=== PATIENT | male | born 1955 | race Caucasian/White ===

== ENCOUNTER 2017-11-26 00:07 | Emergency (ER) | payer BC ==
[~2017-11-26 00:07] MED LIST: AMIT25; CYMBALTA; HYDACE10 PO; HYDACE5 PO; MORP15ER; MORP15ER PO; RXPROM25S PR; SERT25; SERT50; VALS80
[2017-11-26] MEDS ORDERED: ATOR10 PO (00:59)
[2017-11-26] MEDS ORDERED: QUETIAPINE FUM300 M1 PO (00:59)
[2017-11-26] MEDS ORDERED: TELM80 PO (00:59)
[2017-11-26] MEDS ORDERED: L-METHYLFOLATE15 M1 PO (01:00)
[2017-11-26] MEDS ORDERED: DULO60 PO (01:01)
[2017-11-26] MEDS ORDERED: AMLO5 PO (01:01)
[2017-11-26] MEDS ORDERED: Lamictal200 MG PO (01:01)
[2017-11-26] MEDS ORDERED: Diovan320 MG (01:04)
[2017-11-26] MEDS ORDERED: Metformin HCl500 MG PO (01:04)
[2017-11-26] MEDS ORDERED: GLIM2 PO (01:04)
[2017-11-26] MEDS ORDERED: LEVSOD50 PO (01:04)
[2017-11-26] MEDS ORDERED: QUETIAPINE FUMA50 MG PO (01:06)
== END 2017-11-26 00:22 | disposition left against medical advice (07) ==
LOC: ER 00:07
DX: Z53.21 Procedure and treatment not carried out due to patient leaving prior to being seen by health care provider (principal)

== ENCOUNTER 2017-11-26 00:43 | Emergency (ER) | payer BC ==
[~2017-11-26] VITALS: Ht 162.6 cm; Wt 86.2 kg
[2017-11-26] MEDS ORDERED: TELM80 PO (00:59)
[2017-11-26] MEDS ORDERED: ATOR10 PO (00:59)
[2017-11-26] MEDS ORDERED: QUETIAPINE FUM300 M1 PO (00:59)
[2017-11-26] MEDS ORDERED: L-METHYLFOLATE15 M1 PO (01:00)
[2017-11-26] MEDS ORDERED: DULO60 PO (01:01)
[2017-11-26] MEDS ORDERED: Lamictal200 MG PO (01:01)
[2017-11-26] MEDS ORDERED: AMLO5 PO (01:01)
[2017-11-26] MEDS ORDERED: Metformin HCl500 MG PO (01:04)
[2017-11-26] MEDS ORDERED: GLIM2 PO (01:04)
[2017-11-26] MEDS ORDERED: Diovan320 MG (01:04)
[2017-11-26] MEDS ORDERED: LEVSOD50 PO (01:04)
[2017-11-26] MEDS ORDERED: QUETIAPINE FUMA50 MG PO (01:06)
== END 2017-11-26 04:15 | disposition home or self-care (01) ==
LOC: ER 00:43
DX: S01.112A Laceration without foreign body of left eyelid and periocular area, initial encounter (principal); S01.412A Laceration without foreign body of left cheek and temporomandibular area, initial encounter; I11.0 Hypertensive heart disease with heart failure; I50.9 Heart failure, unspecified; F31.9 Bipolar disorder, unspecified; F17.210 Nicotine dependence, cigarettes, uncomplicated; Z88.2 Allergy status to sulfonamides; Z88.5 Allergy status to narcotic agent; Z79.899 Other long term (current) drug therapy; Z79.84 Long term (current) use of oral hypoglycemic drugs; W01.0XXA Fall on same level from slipping, tripping and stumbling without subsequent striking against object, initial encounter
CPT/HCPCS: 12015; 99282

== ENCOUNTER 2019-01-30 14:00 | Inpatient (IN) | payer BC ==
[~2019-01-30] VITALS: Ht 162.6 cm; Wt 92.1 kg
[~2019-01-30 14:00] MED LIST changes: +AMLO5 PO; +ATOR10 PO; +DULO60 PO; +Diovan320 MG; +GLIM2 PO; +L-METHYLFOLATE15 M1 PO; +LAMO100 PO; +LEVSOD50 PO; +METF500 PO; +QUETIAPINE FUM300 M1 PO; +TELM80 PO
[2019-01-30] MEDS ORDERED: Lithium Carbon450 MG PO (14:23)
[2019-01-30] MEDS ORDERED: QUETIAPINE FUM200 M1 PO (14:27)
[2019-01-30] MEDS ORDERED: ASPI81CH PO (14:33)
[2019-01-30] MEDS ORDERED: VITAMIN B125000 MCG SL (14:34)
[2019-01-30] MEDS ORDERED: ONE DAILY MEN'1 EAC1 PO (14:34)
[2019-01-30] MEDS ORDERED: Vitamin D2000 UNIT PO (14:35)
[2019-01-30 14:55] LABS: Hematocrit 43.8 % (37.0-53.0); Hemoglobin 14.4 g/dL (13.5-17.5); Mean Corpuscular HGB 29.8 pg (26.0-34.0); Mean Corpuscular HGB Conc 32.9 g/dL (31.5-36.5); Mean Corpuscular Volume 91 fL (80-100); Mean Platelet Volume 11.1 fL (9.1-12.4); Platelet Count 109 K/mm3 (150-400); RDW Coefficient Variation 14.5 % (11.7-14.2); RDW Standard Deviation 48.7 fL (35.1-46.3); Red Blood Cell Count 4.83 M/mm3 (4.30-5.90)
[2019-01-30 15:11] LABS: Anion Gap 9 mmol/L (6-16); Blood Urea Nitrogen 11 mg/dL (8-24); Bun/Creatinine Ratio 13.9 (12.0-20.0); CHOL/HDL RATIO 4.5; CO2, Blood 22 mmol/L (21-32); CPK Creatine Kinase 126 U/L (39-308); Chloride, Blood 105 mmol/L (98-108); Cholesterol 153 mg/dL (50-200); Creatine Kinase MB 1.7 ng/mL (0.0-3.6); Creatine Kinase MB Index 1.3 (0.0-4.0); Creatinine, Blood 0.79 mg/dL (0.60-1.20); Glomerular Filtration Rate >60 (60-); Glucose, Blood 270 mg/dL (70-99); HDL Cholesterol 34 mg/dL (>39); LDL/HDL RATIO 1.8; Low Density Lipoprotein Chol 61 mg/dL (0-110); Magnesium, Blood 1.8 mg/dL (1.6-2.4); Potassium, Blood 3.7 mmol/L (3.5-5.5); Sodium, Blood 136 mmol/L (136-145); Triglycerides 292 mg/dL (30-160); Troponin I <0.015 ng/mL (0.000-0.040); Very Low Density Lipoprot Chol 58 mg/dL (6-32)
[2019-01-30 16:05] LABS: International Normalized Ratio 1.06; Prothrombin Time Results 11.2 Sec (9.7-11.5)
[2019-01-30 18:11] LABS: Creatine Kinase MB 3.3 ng/mL (0.0-3.6); Creatine Kinase MB Index 2.7 (0.0-4.0); Troponin I 0.354 ng/mL (0.000-0.040)
--- NOTE | 2019-01-30 19:46 | NUR ---
SUMMARY Assumed care of pt upon arrival to unit at 1645. 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 Arrived with nitroglycerin gtt at 20 mcg/min and aggrastat at 0.149 mcg/kg/min. Right transradial artery access, dressed with TR band. Site free of bruising or drainage. Color, sensation, capillary refill, distal pulses equal BUE. This RN placed call to Dr Becker to clarify order for aggrastat and to request order for zofran, as pt is feeling nauseated. New orders given. Dr Becker in to see pt at 1800. Nitroglycerin to be titrated for chest pain. Okay for drip to be turned off tonight, if permitted by pt condition. Pt states 3/10 chest discomfort at this time. Bedside report given to Eunice GARCIA and Laurence GARCIA.
--- NOTE | 2019-01-30 21:44 | NUR ---
ASSUMED CARE NOTE: RECEVIED REPORT FROM GARCIA GARCIA. UPON ENTERING ROOM PT WAS ALERT AND ORIENTED X4. PT REMAINS ON RA WITH SPO2 ABOVE 90%. DURING INITAL ASSESSMENT PT HAS BEEN DENYING ANY CHEST PAIN/DISCOMFORT. HOWEVER HE HAS BEEN C/O NAUSEA AND HAS BEEN MEDICATED PER EMAR. SPOKE TO DR. VALADEZ REGARDING BRILINTA AND HEPARIN MEDS ORDER FOR 01/30/19 @ 2100, DR ADVISED TO HOLD BOTH MEDICATION UNTIL THE AM OF 01/31/19. PT'S TR BAND REMAINS AT 10CC, SITE (RIGHT WRIST) HAS A 3-5 INCH HEMATOMA, MARKED THE AREA AND WILL CONTINUE TO REASSESS. GOOD CAP REFILL. SENSATION AND STRONG PULSE NOTED ON DISTALLY TO RIGHT WIRST. NITROGLYCERIN DECREASED TO 10MCG/MIN PER ORDER. AGGRASTAT RUNNING AT 16.5ML/HR. WILL CONTINUE TO MONITOR PT T/O SHIFT.
--- NOTE | 2019-01-31 00:03 | NUR ---
UPDATE NOTE: NO ACTIVE BLEED SEEN AT TR BAND SITE . 3-5INCH HEMATOMA PROXIMAL TO TR BAND (RIGHT WRIST) NOTED. SENSATION/GOOD CAP REFILL NOTED DISTAL TO TR BAND. PT HAS HAD TO BE REMINDED TO NOT USE RIGHT ARM. PT CONTINUES TO DENY CHEST PAIN.
[2019-01-31 02:26] LABS: BASOPHILS ABSOLUTE AUTO 0.02 K/mm3 (0.00-0.23); BASOPHILS PERCENT AUTO 0 % (0-2); EOSINOPHILS ABSOLUTE AUTO 0.08 K/mm3 (0.00-0.68); EOSINOPHILS PERCENT AUTO 1 % (0-6); Hematocrit 39.4 % (37.0-53.0); Hemoglobin 13.4 g/dL (13.5-17.5); IMMATURE GRAN ABSOLUTE AUTO 0.04 K/mm3 (0.00-0.10); IMMATURE GRAN PERCENT AUTO 0 % (0-1); LYMPHOCYTES ABSOLUTE AUTO 1.73 K/mm3 (0.84-5.20); LYMPHOCYTES PERCENT AUTO 16 % (21-46); MONOCYTES ABSOLUTE AUTO 0.59 K/mm3 (0.16-1.47); MONOCYTES PERCENT AUTO 5 % (4-13); Mean Corpuscular HGB 30.5 pg (26.0-34.0); Mean Corpuscular Volume 90 fL (80-100); Mean Platelet Volume 10.4 fL (9.1-12.4); NEUTROPHILS ABSOLUTE AUTO 8.46 K/mm3 (1.96-9.15); NEUTROPHILS PERCENT AUTO 78 % (41-73); Platelet Count 135 K/mm3 (150-400); RDW Coefficient Variation 14.4 % (11.7-14.2); RDW Standard Deviation 47.1 fL (35.1-46.3); White Blood Cell Count 10.92 K/mm3 (4.00-11.30)
[2019-01-31 02:47] LABS: Alanine Aminotransfer (ALT/SGP 47 U/L (12-78); Albumin, Blood 3.8 g/dL (3.4-5.0); Albumin/Globulin Ratio 0.9 (0.8-1.8); Alk Phos 88 U/L (50-136); Anion Gap 7 mmol/L (6-16); Aspartate Aminotrans (AST/SGOT 82 U/L (12-37); Bilirubin, Total 0.7 mg/dL (0.1-1.0); Blood Urea Nitrogen 9 mg/dL (8-24); Bun/Creatinine Ratio 12.5 (12.0-20.0); CO2, Blood 25 mmol/L (21-32); CPK Creatine Kinase 771 U/L (39-308); Calcium, Blood 8.5 mg/dL (8.5-10.1); Chloride, Blood 106 mmol/L (98-108); Creatine Kinase MB 67.5 ng/mL (0.0-3.6); Creatine Kinase MB Index 8.8 (0.0-4.0); Creatinine, Blood 0.72 mg/dL (0.60-1.20); Globulin, Blood 4.2 g/dL (2.2-4.0); Glomerular Filtration Rate >60 (60-); Glucose, Blood 135 mg/dL (70-99); Potassium, Blood 3.7 mmol/L (3.5-5.5); Sodium, Blood 138 mmol/L (136-145)
--- NOTE | 2019-01-31 06:17 | NUR ---
SHIFT SUMMARY: PT CONTINUES TO BE ALERT AND ORIENTED. PT REMAINS IN SINUS RHYTHYM WITH HR BETWEEN 80-90 BMP. VSS. PT CONTINUES TO DENY ANY CHEST PAIN/SOB. HOWEVER HE WAS C/O STOMACH ACID. PT STATES " EVERYTIME I LAY DOWN I FEEL THE ACID COME UP AND I HAVE TO SIT RIGHT BACK UP". PT WAS THEN GIVEN A GI COCKTAIL ORDERED. PT HAS BEEN USING THE URINAL T/O SHIFT AND VOIDING CLEAR YELLOW URINE. TR BAND STILL IN PLACE WITH 3CC-4CC INFLATED, NO ACTIVE BLEEDING NOTED. GOOD CAP REFILL, SENSATION DISTAL TO TR SITE NOTED. HEMATOMA NOTED PROXIMAL TO SITE. AGGRASTAT IS COMPLETE. NS @ 75ML/HR. BED AT LOWEST LEVEL, CALL LIGHT WITHIN REACH. WILL CONTINUE TO MONITOR PT UNTIL REPORT IS GIVEN TO ONCOMING NURSE.
--- NOTE | 2019-01-31 08:00 | NUR ---
BEGINNING OF SHIFT Assumed care at 0700. Bedside report received from Eunice RN and Laurence RN. Pt on room air. SR per monitor. Aggrastat off. Nitro drip off. Pt denies chest pain. Good appetite. Tolerating breakfast well. TR band had 3 mL of air per report, but is deflated at this time. TR band remains in place.
--- NOTE | 2019-01-31 08:30 | NUR ---
TR BAND REMOVED Site dressed with clear tegaderm. No leakage or hematoma noted to site. Small bruise noted proximal to site. Not extending beyond lines of demarcation placed during previous shift. Color, sensation, distal pulses, capillary refill equal BUE.
[2019-01-31 10:32] LABS: Creatine Kinase MB 112.6 ng/mL (0.0-3.6)
[2019-01-31 10:43] LABS: Creatine Kinase MB Index 7.8 (0.0-4.0); Troponin I 32.1 ng/mL (0.000-0.040)
--- NOTE | 2019-01-31 11:01 | NUR ---
Echocardiogram completed.
--- NOTE | 2019-01-31 11:30 | NUR ---
CALL PLACED TO DR MARIN This RN notified provider of elevated troponin. Pt has not had chest pain this shift. He states he is feeling much better than he did yesterday. Condition discussed with provider. Will recheck troponin 8 hours after previous draw. Pt okay for PCU status.
--- NOTE | 2019-01-31 19:20 | NUR ---
SUMMARY No acute changes since initial assessment. Pt has remained free of chest pain. SR with rate in 70s. SBP 150s. Pt PCU status. Independent in room. Tolerating activity well. Pt verblalizes desire to go home tomorrow. TR site covered with tegaderm. No drainage noted to site. Color, sensation, pulses, capillary refill equal BUE. Bedside report given to Leyda GARCIA.
--- NOTE | 2019-02-01 06:43 | NUR ---
SHIFT SUMMARY LYING ON RIGHT SIDE WITH EYES CLOSED. ABLE TO SWALLOW 0600 MED WITHOUT ISSUE WITH WATER. REPOSITIONS SELF IN BED. RIGHT WRIST ACCESS POINT DRESSING IS C/D/I. SHADOW OF BRUISING NOTED MARKED. DENEIS N/T AT SITE. DENIES FURTHER NEED OR WANTS AT THIS TIME. SAFETY MEASURES IN PLACE. WILL GIVE HAND OFF TO ONCOMING SHIFT USING SBAR,
--- NOTE | 2019-02-01 07:15 | NUR ---
BEGINNING OF SHIFT Assumed care at 0700. Bedside report received from Leyda GARCIA. Pt laying in bed, awake, at time of report. States desire to go home today. Right radial artery access [employer] at time of report. Pt states he wants to take a shower today. Awaiting cardiology to see pt.
--- NOTE | 2019-02-01 08:00 | NUR ---
DR ARBOLEDA IN TO SEE PT Discussed appearance of TR site. Discussed trend of troponins. Discussed absence of chest pain. Plan for pt to discharge this AM. Pt states he uses [facility].
[2019-02-01] MEDS ORDERED: Aspir 8181 MG PO (09:27)
[2019-02-01] MEDS ORDERED: Lopressor 25 mg25 MG PO (09:28)
[2019-02-01] MEDS ORDERED: TICA90TA PO (09:29)
--- NOTE | 2019-02-01 11:00 | NUR ---
DISCHARGE Pt discharged from unit at 1006 accompanied with . Discharge education given to both parties. Verbalized understanding. Medications called to [facility]. Pt escorted to entrance via wheelchair accompanied by this RN.
== END 2019-02-01 10:06 | disposition home or self-care (01) | DRG 247 ==
LOC: ER 14:00 → ICUW 14:16
PROVIDERS: Emergency Medicine; ADMIT Internal Medicine Interventional Cardiology
PROC: 027035Z Dilation of Coronary Artery, One Artery with Two Drug-eluting Intraluminal Devices, Percutaneous Approach (ICD-10-PCS; principal; 2019-01-30)
PROC: 02703ZZ Dilation of Coronary Artery, One Artery, Percutaneous Approach (ICD-10-PCS; 2019-01-30)
PROC: 02C03ZZ Extirpation of Matter from Coronary Artery, One Artery, Percutaneous Approach (ICD-10-PCS; 2019-01-30)
PROC: B240ZZ3 Ultrasonography of Single Coronary Artery, Intravascular (ICD-10-PCS; 2019-01-30)
DX: I21.3 ST elevation (STEMI) myocardial infarction of unspecified site (principal); I10 Essential (primary) hypertension; E78.5 Hyperlipidemia, unspecified; F17.210 Nicotine dependence, cigarettes, uncomplicated; Z98.1 Arthrodesis status; Z79.82 Long term (current) use of aspirin; E11.9 Type 2 diabetes mellitus without complications; Z79.84 Long term (current) use of oral hypoglycemic drugs
CPT/HCPCS: 36415; 71045; 76937; 80048; 80053; 80061; 82550; 82553; 82947; 83735; 84484; 85025; 85027; 85347; 85610; 85730; 86850; 86900; 86901; 92978; 93005; 93010; 93306; 93454; 99152; 99153; 99285-25; C1725; C1753; C1757; C1769; C1874; C1887; C1894; C9606; J1644; J1815; J2250; J2405; J3010; J3246; J7030; Q9967

== ENCOUNTER → 2019-08-26 | Outpatient (CLI) | payer BC ==
[~2019-08-26] MED LIST changes: +ASPI81CH PO; +Aspir 8181 MG PO; +Lithium Carbon450 MG PO; +Lopressor 25 mg25 MG PO; +ONE DAILY MEN'1 EAC1 PO; +QUETIAPINE FUM200 M1 PO; +TICA90TA PO; +VITAMIN B125000 MCG SL; +Vitamin D2000 UNIT PO
[2019-08-26 17:39] LABS: Free Thyroxine 0.78 ng/dL (0.70-1.60)
[2019-08-26 17:43] LABS: Thyroid Stimulating Hormone 3.25 uIU/mL (0.360-4.800)
== END | disposition home or self-care (01) ==
LOC: LAB SHORT 15:52 → LAB 15:52
PROVIDERS: Hospitalist
DX: E11.65 Type 2 diabetes mellitus with hyperglycemia (principal); E03.9 Hypothyroidism, unspecified
CPT/HCPCS: 82043; 84439; 84443

== ENCOUNTER → 2021-03-14 | Outpatient (CLI) | payer BC ==
[2021-03-14 19:06] LABS: Free Thyroxine 0.65 ng/dL (0.70-1.60); Thyroid Stimulating Hormone 2.98 uIU/mL (0.360-4.800)
== END | disposition home or self-care (01) ==
LOC: LAB 17:20 → LAB SHORT 17:20
PROVIDERS: Hospitalist
DX: E03.9 Hypothyroidism, unspecified (principal)
CPT/HCPCS: 84439; 84443

== ENCOUNTER 2021-05-25 07:52 | Day surgery (SDC) | payer BC ==
[~2021-05-25] VITALS: Ht 162.6 cm; Wt 92.7 kg
[2021-05-25] MEDS ORDERED: QUET200 (08:28)
--- NOTE | 2021-05-25 08:44 | NUR ---
05/25/21 0844 CROW CROWLEY FIRST ATTEMPT MISSED BY MA IN THE RIGHT HAND. SECOND ATTEMPT SUCCESSFUL BY MA IN THE RIGHT HAND.
--- NOTE | 2021-05-25 11:40 | NUR ---
05/25/21 1140 Levi Medrano PT VERY DROWSY AFTER COLONOSCOPY HOWEVER VS WNL. PT NOW AWAKE AND ALERT. PER DR. PEOPLES PT WILL NEED TO OBSERVED FOR ANOTHER 30 MINS IN STEP DOWN. PT ON CONTINOUS VS MONITORING. PT SMILING AND LAUGHING. REPORT GIVEN TO STEP DOWN NURSE DORA. WILL CONTINUE TO MONITOR.
== END 2021-05-25 12:08 | disposition home or self-care (01) ==
LOC: ORSCSDS 07:52
PROVIDERS: Student in an Organized Health Care Education/Training Program
PROC: 0DBL8ZX Excision of Transverse Colon, Via Natural or Artificial Opening Endoscopic, Diagnostic (ICD-10-PCS; principal; 2021-05-25 09:15)
PROC: 0DBM8ZX Excision of Descending Colon, Via Natural or Artificial Opening Endoscopic, Diagnostic (ICD-10-PCS; principal; 2021-05-25 09:15)
PROC: 0DBH8ZX Excision of Cecum, Via Natural or Artificial Opening Endoscopic, Diagnostic (ICD-10-PCS; principal; 2021-05-25 09:15)
PROC: 0DBK8ZX Excision of Ascending Colon, Via Natural or Artificial Opening Endoscopic, Diagnostic (ICD-10-PCS; principal; 2021-05-25 09:15)
PROC: 0DBN8ZX Excision of Sigmoid Colon, Via Natural or Artificial Opening Endoscopic, Diagnostic (ICD-10-PCS; principal; 2021-05-25 09:15)
DX: Z12.11 Encounter for screening for malignant neoplasm of colon (principal); D12.3 Benign neoplasm of transverse colon; D12.2 Benign neoplasm of ascending colon; D12.0 Benign neoplasm of cecum; D12.4 Benign neoplasm of descending colon; K63.5 Polyp of colon; K57.30 Diverticulosis of large intestine without perforation or abscess without bleeding; K64.8 Other hemorrhoids; I10 Essential (primary) hypertension; G47.33 Obstructive sleep apnea (adult) (pediatric); F31.9 Bipolar disorder, unspecified; E66.9 Obesity, unspecified; Z68.35 Body mass index [BMI] 35.0-35.9, adult; Z79.899 Other long term (current) drug therapy
CPT/HCPCS: 82947; 88305; J2060; J2250; J2704; J7120

== ENCOUNTER 2021-10-03 06:26 | Day surgery (SDC) | payer BC ==
[~2021-10-03] VITALS: Ht 162.6 cm; Wt 95.5 kg
[~2021-10-03 06:26] MED LIST changes: +QUET200
== END 2021-10-03 09:46 | disposition home or self-care (01) ==
LOC: ORSCSDS 06:26
PROVIDERS: Student in an Organized Health Care Education/Training Program
PROC: 0DBL8ZX Excision of Transverse Colon, Via Natural or Artificial Opening Endoscopic, Diagnostic (ICD-10-PCS; principal; 2021-10-03 08:00)
PROC: 0DBK8ZX Excision of Ascending Colon, Via Natural or Artificial Opening Endoscopic, Diagnostic (ICD-10-PCS; principal; 2021-10-03 08:00)
PROC: 0DBN8ZX Excision of Sigmoid Colon, Via Natural or Artificial Opening Endoscopic, Diagnostic (ICD-10-PCS; principal; 2021-10-03 08:00)
PROC: 0DBM8ZX Excision of Descending Colon, Via Natural or Artificial Opening Endoscopic, Diagnostic (ICD-10-PCS; principal; 2021-10-03 08:00)
PROC: 0DBH8ZX Excision of Cecum, Via Natural or Artificial Opening Endoscopic, Diagnostic (ICD-10-PCS; principal; 2021-10-03 08:00)
DX: Z86.010 Personal history of colon polyps (principal); D12.3 Benign neoplasm of transverse colon; D12.0 Benign neoplasm of cecum; D12.2 Benign neoplasm of ascending colon; D12.4 Benign neoplasm of descending colon; K63.5 Polyp of colon; K57.30 Diverticulosis of large intestine without perforation or abscess without bleeding; I10 Essential (primary) hypertension; E78.5 Hyperlipidemia, unspecified; G47.33 Obstructive sleep apnea (adult) (pediatric); Z87.891 Personal history of nicotine dependence; I25.2 Old myocardial infarction; F31.9 Bipolar disorder, unspecified; E66.9 Obesity, unspecified; Z68.36 Body mass index [BMI] 36.0-36.9, adult; Z79.899 Other long term (current) drug therapy; Z79.82 Long term (current) use of aspirin
CPT/HCPCS: 82947; 88305; J1100; J2250; J2405; J2704; J3010; J7120

== ENCOUNTER → 2021-11-28 | Outpatient (CLI) | payer BC | END | disposition home or self-care (01) | LOC: LAB SHORT 16:45 → LAB 16:45 | DX: E11.42 Type 2 diabetes mellitus with diabetic polyneuropathy (principal) | CPT/HCPCS: 82043 ==

== ENCOUNTER 2022-10-27 08:12 | Observation (INO) | payer BC ==
[~2022-10-27] VITALS: Ht 162.6 cm; Wt 90.2 kg
[~2022-10-27 08:12] MED LIST changes: +EUTHYROX88 MCG PO; -LEVSOD50 PO; -QUET200; +QUET200 PO
[2022-10-27 08:50] LABS: BASOPHILS ABSOLUTE AUTO 0.01 K/mm3 (0.00-0.23); BASOPHILS PERCENT AUTO 0 % (0-2); EOSINOPHILS ABSOLUTE AUTO 0.09 K/mm3 (0.00-0.68); EOSINOPHILS PERCENT AUTO 2 % (0-6); Hematocrit 31.9 % (37.0-53.0); Hemoglobin 10.3 g/dL (13.5-17.5); IMMATURE GRAN ABSOLUTE AUTO 0.02 K/mm3 (0.00-0.10); IMMATURE GRAN PERCENT AUTO 0 % (0-1); LYMPHOCYTES ABSOLUTE AUTO 1.85 K/mm3 (0.84-5.20); LYMPHOCYTES PERCENT AUTO 39 % (21-46); MONOCYTES ABSOLUTE AUTO 0.23 K/mm3 (0.16-1.47); MONOCYTES PERCENT AUTO 5 % (4-13); Mean Corpuscular HGB 28.6 pg (26.0-34.0); Mean Corpuscular HGB Conc 32.3 g/dL (31.5-36.5); Mean Corpuscular Volume 89 fL (80-100); NEUTROPHILS PERCENT AUTO 53 % (41-73); Platelet Count 118 K/mm3 (150-400); RDW Coefficient Variation 16.8 % (11.7-14.2); RDW Standard Deviation 54.1 fL (35.1-46.3)
[2022-10-27 09:13] LABS: Albumin, Blood 3.5 g/dL (3.4-5.0); Albumin/Globulin Ratio 0.9 (0.8-1.8); Bilirubin, Total 0.5 mg/dL (0.1-1.0); Bun/Creatinine Ratio 15.2 (12.0-20.0); Calcium, Blood 8.4 mg/dL (8.5-10.1); Creatinine, Blood 0.79 mg/dL (0.60-1.20); Globulin, Blood 3.7 g/dL (2.2-4.0); Potassium, Blood 3.7 mmol/L (3.5-5.5); Total Protein, Blood 7.2 g/dL (6.4-8.2)
[2022-10-27] MEDS ORDERED: FARXIGA10 MG PO (11:47)
[2022-10-27 12:15] VITALS: BP 118/77
--- NOTE | 2022-10-27 12:45 | NUR ---
PT ADMITTED TO ROOM 312 FROM ED VIA GURNEY. SETTLED IN TO BED AND ORIENTED TO ROOM. INDEPENDENT WITH MOBILITY. DENIES CHEST PAIN ON ARRIVAL. IN A SHORT TIME AFTER HE ARRIVED. MD NOTIFIED OF PTS ARRIVAL.
[2022-10-27] MEDS ORDERED: QUET300 PO (13:46)
[2022-10-27] MEDS ORDERED: VITAMIN B125000 MC1 PO (13:47)
[2022-10-27] MEDS ORDERED: VITAMIN D5000 UNIT PO (13:47)
[2022-10-27 15:00] LABS: CHOL/HDL RATIO 2.9; Cholesterol 103 mg/dL (50-200); HDL Cholesterol 35 mg/dL (>39); LDL/HDL RATIO 1.3; Low Density Lipoprotein Chol 45 mg/dL (0-110); Triglycerides 114 mg/dL (30-160); Very Low Density Lipoprot Chol 22 mg/dL (6-32)
[2022-10-27 15:18] VITALS: BP 126/77
--- NOTE | 2022-10-27 18:42 | NUR ---
SHIFT SUMMARY PT WITH NO CHEST PAIN THROUGH THE SHIFT. NOTIFIED OF MEDS NOT AVAILABLE FROM HOSPITAL [facility]. SHE IS TO BRING THEM IN TOMORROW. PT AND REQUESTING HOME MEDS TO BE GIVEN CLOSE TO HOME MED TIME POSSIBLE. AGREEABLE TO 1000 AND 2200.
[2022-10-27 19:23] VITALS: BP 148/81
[2022-10-28 03:47] VITALS: BP 117/64
[2022-10-28 05:15] LABS: BASOPHILS ABSOLUTE AUTO 0.03 K/mm3 (0.00-0.23); BASOPHILS PERCENT AUTO 1 % (0-2); EOSINOPHILS ABSOLUTE AUTO 0.13 K/mm3 (0.00-0.68); EOSINOPHILS PERCENT AUTO 2 % (0-6); Hematocrit 30.9 % (37.0-53.0); IMMATURE GRAN ABSOLUTE AUTO 0.03 K/mm3 (0.00-0.10); IMMATURE GRAN PERCENT AUTO 1 % (0-1); LYMPHOCYTES ABSOLUTE AUTO 1.79 K/mm3 (0.84-5.20); LYMPHOCYTES PERCENT AUTO 32 % (21-46); MONOCYTES ABSOLUTE AUTO 0.35 K/mm3 (0.16-1.47); MONOCYTES PERCENT AUTO 6 % (4-13); Mean Corpuscular HGB 28.8 pg (26.0-34.0); Mean Corpuscular HGB Conc 32.4 g/dL (31.5-36.5); Mean Corpuscular Volume 89 fL (80-100); Mean Platelet Volume 11.3 fL (9.1-12.4); NEUTROPHILS ABSOLUTE AUTO 3.27 K/mm3 (1.96-9.15); NEUTROPHILS PERCENT AUTO 58 % (41-73); Platelet Count 125 K/mm3 (150-400); RDW Standard Deviation 54.9 fL (35.1-46.3); Red Blood Cell Count 3.47 M/mm3 (4.30-5.90)
[2022-10-28 05:55] LABS: Albumin, Blood 3.4 g/dL (3.4-5.0); Albumin/Globulin Ratio 0.9 (0.8-1.8); Bilirubin, Total 0.5 mg/dL (0.1-1.0); Bun/Creatinine Ratio 20.3 (12.0-20.0); Calcium, Blood 8.2 mg/dL (8.5-10.1); Creatinine, Blood 0.79 mg/dL (0.60-1.20); Globulin, Blood 3.8 g/dL (2.2-4.0); Potassium, Blood 3.6 mmol/L (3.5-5.5); Total Protein, Blood 7.2 g/dL (6.4-8.2)
--- NOTE | 2022-10-28 06:10 | NUR ---
INDEPENDENT IN ROOM, BABAK SQUIRES NPO FOR PENDING PROCEDURE TODAY. TELE IN PLACE, NO CALLS FROM TELE MATE FIRST. FIRE SAFETY REVIEWED.
[2022-10-28 07:45] VITALS: BP 130/76
--- NOTE | 2022-10-28 17:30 | NUR ---
DISCHARGE INSTRUCTIONS COMPLETED AND DISCUSSED WITH PT AND EXPRESSING UNDERSTANDING. CALLED MD PER PT REQUEST TO ASK IF NITRO TABS WOULD BE APPROPRIATE WITH APPROVAL. FAXED TO [facility] PER PT REQUEST. TO [facility]IA W/C WITH AND BELONGINGS.
== END 2022-10-28 17:20 | disposition home or self-care (01) ==
LOC: ER 08:12 → MEDS 10:14
PROVIDERS: Emergency Medicine; Student in an Organized Health Care Education/Training Program; ADMIT Internal Medicine
DX: I25.118 Atherosclerotic heart disease of native coronary artery with other forms of angina pectoris (principal); F31.9 Bipolar disorder, unspecified; I10 Essential (primary) hypertension; E11.9 Type 2 diabetes mellitus without complications; E03.9 Hypothyroidism, unspecified; E78.5 Hyperlipidemia, unspecified; I25.2 Old myocardial infarction; Z95.5 Presence of coronary angioplasty implant and graft; F17.210 Nicotine dependence, cigarettes, uncomplicated; Z88.5 Allergy status to narcotic agent; Z88.2 Allergy status to sulfonamides; Z79.890 Hormone replacement therapy; Z79.899 Other long term (current) drug therapy
CPT/HCPCS: 36415; 71046; 78452; 80053; 80061; 82947; 83036; 83880; 84484; 85025; 93005; 93010; 93017; 96374; 99285-25; A9270; A9500; G0378; J0706; J2405; J2785

== ENCOUNTER 2022-11-15 07:08 | Observation (INO) | payer BC ==
[~2022-11-15] VITALS: Ht 162.6 cm; Wt 90.0 kg
[~2022-11-15 07:08] MED LIST changes: +ERGO50000 PO; +EUTHYROX50 MC1 PO; +FARXIGA10 MG PO; +FERROUS SULFAT325 M3 PO; +Isosorbide Mono30 MG PO; +QUET300 PO; +VITAMIN B125000 MC1 PO; +VITAMIN D5000 UNIT PO
--- NOTE | 2022-11-15 11:07 | NUR ---
PT REPORTS NAUSEA AND IS PROVIDED A EMESIS BAG. VERBAL ORDER FROM DR. COPELAND FOR 4MG ZOFRAN IV NOW. PT MEDICATED ORDERED. PT AWAITING PCU ROOM
[2022-11-15 11:41] VITALS: BP 158/89
[2022-11-15 12:24] VITALS: BP 158/89
[2022-11-15 12:30] VITALS: BP 143/78
[2022-11-15 13:00] VITALS: BP 148/81
[2022-11-15 13:30] VITALS: BP 142/89
--- NOTE | 2022-11-15 14:23 | NUR ---
TR BAND FULLY RECOVERED. CLEANED WITH CHOLRIHEXIDINE AND A TEGADERM WAS PLACED. ARM BOARD LEFT IN PLACE AND A SLING WAS APPLIED TO REMIND THE PT NOT TO PUT PRESSURE ON HIS RIGHT WRIST.
--- NOTE | 2022-11-15 14:24 | NUR ---
AFTERNOON SUMMARY PT TRANSFERED TO [facility] AR[facility] 1220 THIS AFTERNOON. HE HAD A ANGIO ON HIS RIGHT WRIST AND IS AWAITING TRANSPORT FOR [facility] ROOM 275. I GAVE REPORT TO EDUARDO GARCIA AT [facility]. PT IS PLEASENT AND COOPERATIRob RIOSUT NEED REMINDERS ABOUT NOT PUTTING PRESSURE ON HIS RIGHT WRIST. ARM BOARD AND SLING IN PLACE FOR A REMINDER. HIS MARIO WORKS HERE AT THE HOSPITAL AND CAME TO SEE THE PT. SHE WAS UPDATED ON CARE. ON TELE PT IS SR 70'S-80'S, BP STABLE, SP02 >90% ON ROOM AIR. PT DENIES ANY ANGINA, CHEST PRESSURE, SOB, OR PAIN. PT DOES HAVE SOME NAUSEA AND WAS MEDICATED WITH 4MG PO ZOFRAN. HE IS RESTING AT THIS TIME. FIRE IGNITION RISK ASSESSED, PT EDUCATED.
--- NOTE | 2022-11-15 16:30 | NUR ---
PT PICKED UP BY TRANSPORT AT ABOUT 1610, HIS WALLET IS WITH HIS , AND BELONGINGS SENT WITH THE PT.
== END 2022-11-15 16:27 | disposition short-term general hospital (02) ==
LOC: MHTC 07:08 → PCU 07:10 → MHTC 07:10 → PCU 09:51
PROVIDERS: ADMIT Family Medicine
DX: I25.110 Atherosclerotic heart disease of native coronary artery with unstable angina pectoris (principal); T82.855A Stenosis of coronary artery stent, initial encounter; Y71.8 Miscellaneous cardiovascular devices associated with adverse incidents, not elsewhere classified; I25.2 Old myocardial infarction; E78.49 Other hyperlipidemia; I10 Essential (primary) hypertension; E11.9 Type 2 diabetes mellitus without complications; E03.9 Hypothyroidism, unspecified; Z88.5 Allergy status to narcotic agent; Z88.2 Allergy status to sulfonamides; Z79.84 Long term (current) use of oral hypoglycemic drugs; Z79.899 Other long term (current) drug therapy
CPT/HCPCS: 76937; 82947; 85347; 93454; 93571; 99152; 99153; A9270; C1769; C1887; C1894; J1644; J1815; J2250; J2405; J3010; J7030; J7050; Q9967

== ENCOUNTER → 2022-11-22 | Outpatient (CLI) | payer BC ==
[2022-11-22 19:33] LABS: BASOPHILS ABSOLUTE AUTO 0.02 K/mm3 (0.00-0.23); BASOPHILS PERCENT AUTO 0 % (0-2); EOSINOPHILS ABSOLUTE AUTO 0.18 K/mm3 (0.00-0.68); EOSINOPHILS PERCENT AUTO 4 % (0-6); Hematocrit 32.2 % (37.0-53.0); Hemoglobin 10.3 g/dL (13.5-17.5); IMMATURE GRAN ABSOLUTE AUTO 0.02 K/mm3 (0.00-0.10); IMMATURE GRAN PERCENT AUTO 0 % (0-1); LYMPHOCYTES ABSOLUTE AUTO 1.37 K/mm3 (0.84-5.20); LYMPHOCYTES PERCENT AUTO 28 % (21-46); MONOCYTES ABSOLUTE AUTO 0.46 K/mm3 (0.16-1.47); MONOCYTES PERCENT AUTO 9 % (4-13); Mean Corpuscular HGB 28.8 pg (26.0-34.0); Mean Corpuscular Volume 90 fL (80-100); Mean Platelet Volume 12.1 fL (9.1-12.4); NEUTROPHILS ABSOLUTE AUTO 2.89 K/mm3 (1.96-9.15); NEUTROPHILS PERCENT AUTO 59 % (41-73); Platelet Count 134 K/mm3 (150-400); RDW Coefficient Variation 14.9 % (11.7-14.2); RDW Standard Deviation 49.1 fL (35.1-46.3); Red Blood Cell Count 3.58 M/mm3 (4.30-5.90); White Blood Cell Count 4.94 K/mm3 (4.00-11.30)
[2022-11-22 20:16] LABS: Bun/Creatinine Ratio 12.2 (12.0-20.0); Calcium, Blood 8.2 mg/dL (8.5-10.1); Creatinine, Blood 0.82 mg/dL (0.60-1.20); Potassium, Blood 3.9 mmol/L (3.5-5.5)
== END | disposition home or self-care (01) ==
LOC: LAB SHORT 17:38 → LAB 17:38
PROVIDERS: Hospitalist
DX: I25.110 Atherosclerotic heart disease of native coronary artery with unstable angina pectoris (principal); K92.1 Melena
CPT/HCPCS: 80048; 85025

== ENCOUNTER 2022-12-18 08:12 | Emergency (ER) | payer BC ==
[~2022-12-18] VITALS: Ht 162.6 cm; Wt 86.2 kg
[2022-12-18 09:26] LABS: BASOPHILS ABSOLUTE AUTO 0.08 K/mm3 (0.00-0.23); BASOPHILS PERCENT AUTO 1 % (0-2); EOSINOPHILS ABSOLUTE AUTO 0.83 K/mm3 (0.00-0.68); EOSINOPHILS PERCENT AUTO 9 % (0-6); Hemoglobin 6.8 g/dL (13.5-17.5); IMMATURE GRAN ABSOLUTE AUTO 0.05 K/mm3 (0.00-0.10); IMMATURE GRAN PERCENT AUTO 1 % (0-1); LYMPHOCYTES ABSOLUTE AUTO 2.11 K/mm3 (0.84-5.20); LYMPHOCYTES PERCENT AUTO 22 % (21-46); MONOCYTES ABSOLUTE AUTO 0.53 K/mm3 (0.16-1.47); MONOCYTES PERCENT AUTO 5 % (4-13); Mean Corpuscular HGB Conc 28.3 g/dL (31.5-36.5); Mean Corpuscular Volume 88 fL (80-100); Mean Platelet Volume 10.7 fL (9.1-12.4); NEUTROPHILS ABSOLUTE AUTO 6.19 K/mm3 (1.96-9.15); NEUTROPHILS PERCENT AUTO 63 % (41-73); Platelet Count 216 K/mm3 (150-400); RDW Coefficient Variation 16.2 % (11.7-14.2); RDW Standard Deviation 52.1 fL (35.1-46.3); Red Blood Cell Count 2.72 M/mm3 (4.30-5.90); White Blood Cell Count 9.79 K/mm3 (4.00-11.30)
[2022-12-18 09:30] LABS: International Normalized Ratio 1.17; Prothrombin Time Results 12.2 Sec (9.7-11.5)
[2022-12-18 09:36] LABS: Albumin, Blood 3.1 g/dL (3.4-5.0); Albumin/Globulin Ratio 0.8 (0.8-1.8); Bilirubin, Total 0.4 mg/dL (0.1-1.0); Calcium, Blood 7.9 mg/dL (8.5-10.1); Creatinine, Blood 0.8 mg/dL (0.60-1.20); Globulin, Blood 4.1 g/dL (2.2-4.0); Potassium, Blood 3.5 mmol/L (3.5-5.5); Total Protein, Blood 7.2 g/dL (6.4-8.2)
[2022-12-18] MEDS ORDERED: FARXIGA10 MG PO (10:08)
[2022-12-18] MEDS ORDERED: LAMICTAL200 MG PO (10:08)
[2022-12-18 15:49] VITALS: BP 128/93
[2022-12-24] MEDS ORDERED: PANT40 PO (21:16)
== END 2022-12-18 15:46 | disposition home or self-care (01) ==
LOC: ER 08:12
PROVIDERS: Student in an Organized Health Care Education/Training Program
DX: K92.0 Hematemesis (principal); D64.9 Anemia, unspecified; I10 Essential (primary) hypertension; E11.9 Type 2 diabetes mellitus without complications; I25.2 Old myocardial infarction; F31.9 Bipolar disorder, unspecified; F17.210 Nicotine dependence, cigarettes, uncomplicated; Z95.1 Presence of aortocoronary bypass graft; Z88.2 Allergy status to sulfonamides; Z88.5 Allergy status to narcotic agent; Z79.899 Other long term (current) drug therapy; Z79.84 Long term (current) use of oral hypoglycemic drugs
CPT/HCPCS: 36430; 71046; 80053; 82272; 85025; 85610; 86850; 86900; 86901; 86923; 93005; 93010; 96365; 96375; 99285-25; C9113; J0696; J7030; P9016

== ENCOUNTER 2022-12-25 23:51 | Observation (INO) | payer BC ==
[~2022-12-25] VITALS: Ht 175.3 cm; Wt 81.7 kg
[~2022-12-25 23:51] MED LIST changes: +LAMICTAL200 MG PO; +PANT40 PO
[2022-12-26] VITALS (32 sets, daily range): BP systolic 96–163; BP diastolic 66–118
[2022-12-26 01:05] LABS: BASOPHILS ABSOLUTE AUTO 0.06 K/mm3 (0.00-0.23); BASOPHILS PERCENT AUTO 0 % (0-2); EOSINOPHILS ABSOLUTE AUTO 0.41 K/mm3 (0.00-0.68); EOSINOPHILS PERCENT AUTO 3 % (0-6); Hematocrit 23.5 % (37.0-53.0); Hemoglobin 7.1 g/dL (13.5-17.5); IMMATURE GRAN ABSOLUTE AUTO 0.08 K/mm3 (0.00-0.10); IMMATURE GRAN PERCENT AUTO 1 % (0-1); LYMPHOCYTES ABSOLUTE AUTO 2.51 K/mm3 (0.84-5.20); LYMPHOCYTES PERCENT AUTO 17 % (21-46); MONOCYTES ABSOLUTE AUTO 0.75 K/mm3 (0.16-1.47); MONOCYTES PERCENT AUTO 5 % (4-13); Mean Corpuscular HGB 26.3 pg (26.0-34.0); Mean Corpuscular HGB Conc 30.2 g/dL (31.5-36.5); Mean Corpuscular Volume 87 fL (80-100); Mean Platelet Volume 12.8 fL (9.1-12.4); NEUTROPHILS ABSOLUTE AUTO 11.24 K/mm3 (1.96-9.15); NEUTROPHILS PERCENT AUTO 75 % (41-73); NRBC ABSOLUTE 0.05 K/mm3 (0.00-0.02); NRBC Auto 0.3 /100 WBC (0.0-0.2); Platelet Count 253 K/mm3 (150-400); RDW Coefficient Variation 16.8 % (11.7-14.2); RDW Standard Deviation 52.9 fL (35.1-46.3); White Blood Cell Count 15.05 K/mm3 (4.00-11.30)
[2022-12-26 01:07] LABS: Albumin/Globulin Ratio 0.8 (0.8-1.8); Bilirubin, Total 0.9 mg/dL (0.1-1.0); Bun/Creatinine Ratio 28.3 (12.0-20.0); Calcium, Blood 8.4 mg/dL (8.5-10.1); Creatinine, Blood 1.06 mg/dL (0.60-1.20); Globulin, Blood 3.8 g/dL (2.2-4.0); Potassium, Blood 3.9 mmol/L (3.5-5.5); Total Protein, Blood 6.8 g/dL (6.4-8.2)
[2022-12-26 02:19] LABS: Hematocrit 21.6 % (37.0-53.0); Hemoglobin 6.7 g/dL (13.5-17.5)
--- NOTE | 2022-12-26 07:09 | NUR ---
PT ARRIVED FROM ED AT 0635. PT A/O X4. NAUSEOUS AND VOMITTING UPON ARRIVAL TO ROOM. SMALL AMOUNT OF COFFEE GROUND EMESIS NOTED IN EMESIS BAG. LUNG GARRETT CLEAR UPON AUSCULTATION. PT COMPLAINING FEELING WARM, REQUESTING TO BE WIPED DOWN WITH COLD RAG. PT GIVEN TO ICE PACKS, ORAL TEMP 97.[address] OSULLIVAN FOR NG TUBE RECIEVED. FLUIDS STARTED. AT BEDSIDE. REPORT GIVEN TO BALWINDER RN AND EVELIO GARCIA.
[2022-12-26 07:13] LABS: Hematocrit 25.8 % (37.0-53.0); Hemoglobin 8.2 g/dL (13.5-17.5)
--- NOTE | 2022-12-26 11:12 | NUR ---
ASSUMPTION OF CARE REPORT RECEIVED FROM NOC RN. PT RESTING IN BED. PT IS ALERT AND ORIENTED, COMMUNICATES WIHT STAFF APPROPRIATELY, FOLLOWS COMMANDS AND IS ABLE TO MAKE HIS NEEDS KNOWN. HR SINUS TACH 120-150'S, MAP > 65. PT ON RA, OXYGEN SATURATION >95%. PT IS NAUSEAOUS WITH MULTIPLE BOUTS OF DRY HEAVING AND VOMITING. NG TUBE PLACED, CONFIRMED WITH XRAY, OUTPUT IS THICK, BLACK COFFEE GROUND-LIKE GASTRIC CONTENTS. POWERGLIDE TO MAE INFUSING. AT THE BEDSIDE.
[2022-12-26 11:35] LABS: Hematocrit 21.2 % (37.0-53.0); Hemoglobin 6.8 g/dL (13.5-17.5)
[2022-12-26 13:41] LABS: International Normalized Ratio 1.3; Prothrombin Time Results 13.4 Sec (9.7-11.5)
--- NOTE | 2022-12-26 15:04 | NUR ---
PT UPDATE PT LEFT AT 1454 WITH EMS TO TRANFER TO [facility]. PT BELONGINGS SENT WITH HIS . PT VITAL SIGNS STABLE AT TIME OF TRANSFER. REPORT GIVEN TO SHERRI GARCIA.
== END 2022-12-26 15:00 | disposition short-term general hospital (02) ==
LOC: ER 23:51 → ICUE 23:52
PROVIDERS: Emergency Medicine; Hospitalist; Student in an Organized Health Care Education/Training Program; ADMIT Student in an Organized Health Care Education/Training Program
DX: K92.2 Gastrointestinal hemorrhage, unspecified (principal); F31.9 Bipolar disorder, unspecified; I10 Essential (primary) hypertension; E11.9 Type 2 diabetes mellitus without complications; E78.5 Hyperlipidemia, unspecified; F17.210 Nicotine dependence, cigarettes, uncomplicated; E86.0 Dehydration; I25.2 Old myocardial infarction; Z95.1 Presence of aortocoronary bypass graft
CPT/HCPCS: 36415; 36430; 36569; 71045; 74174; 80053; 82947; 85014; 85018; 85025; 85610; 86850; 86900; 86901; 86923; 96361; 96374; 96375; 96376; 99285-25; C1751; C9113; G0378; J0780; J1200; J1815; J2354; J2405; J2765; J7030; J7050; J7120; P9016; Q9967

== ENCOUNTER 2022-12-30 22:31 | Emergency (ER) | payer BC ==
[~2022-12-30] VITALS: Ht 177.8 cm; Wt 83.9 kg
[2022-12-30 23:25] LABS: BASOPHILS ABSOLUTE AUTO 0.06 K/mm3 (0.00-0.23); BASOPHILS PERCENT AUTO 0 % (0-2); EOSINOPHILS ABSOLUTE AUTO 0.31 K/mm3 (0.00-0.68); EOSINOPHILS PERCENT AUTO 2 % (0-6); Hematocrit 24.5 % (37.0-53.0); Hemoglobin 7.3 g/dL (13.5-17.5); IMMATURE GRAN ABSOLUTE AUTO 0.12 K/mm3 (0.00-0.10); IMMATURE GRAN PERCENT AUTO 1 % (0-1); LYMPHOCYTES ABSOLUTE AUTO 1.67 K/mm3 (0.84-5.20); LYMPHOCYTES PERCENT AUTO 9 % (21-46); MONOCYTES ABSOLUTE AUTO 0.98 K/mm3 (0.16-1.47); MONOCYTES PERCENT AUTO 5 % (4-13); Mean Corpuscular HGB 26.8 pg (26.0-34.0); Mean Corpuscular HGB Conc 29.8 g/dL (31.5-36.5); Mean Corpuscular Volume 90 fL (80-100); NEUTROPHILS ABSOLUTE AUTO 15.71 K/mm3 (1.96-9.15); NEUTROPHILS PERCENT AUTO 83 % (41-73); NRBC ABSOLUTE 0.02 K/mm3 (0.00-0.02); NRBC Auto 0.1 /100 WBC (0.0-0.2); Platelet Count 366 K/mm3 (150-400); RDW Coefficient Variation 16.3 % (11.7-14.2); RDW Standard Deviation 53.6 fL (35.1-46.3); Red Blood Cell Count 2.72 M/mm3 (4.30-5.90); White Blood Cell Count 18.85 K/mm3 (4.00-11.30)
[2022-12-30 23:43] LABS: International Normalized Ratio 1.27; Prothrombin Time Results 13.2 Sec (9.7-11.5)
[2022-12-30 23:45] LABS: Albumin, Blood 2.7 g/dL (3.4-5.0); Albumin/Globulin Ratio 0.8 (0.8-1.8); Bilirubin, Total 0.6 mg/dL (0.1-1.0); Bun/Creatinine Ratio 29.3 (12.0-20.0); Calcium, Blood 8.3 mg/dL (8.5-10.1); Creatinine, Blood 0.99 mg/dL (0.60-1.20); Globulin, Blood 3.3 g/dL (2.2-4.0); Magnesium, Blood 2.3 mg/dL (1.6-2.4)
[2022-12-31 01:15] VITALS: BP 104/65
== END 2022-12-31 02:28 | disposition short-term general hospital (02) ==
LOC: ER 22:31
PROVIDERS: Emergency Medicine
DX: K92.2 Gastrointestinal hemorrhage, unspecified (principal); D64.9 Anemia, unspecified; R55 Syncope and collapse; Z88.2 Allergy status to sulfonamides; Z88.5 Allergy status to narcotic agent; I10 Essential (primary) hypertension; E78.5 Hyperlipidemia, unspecified; E03.9 Hypothyroidism, unspecified; E11.9 Type 2 diabetes mellitus without complications; F17.210 Nicotine dependence, cigarettes, uncomplicated
CPT/HCPCS: 36430; 71045; 80053; 83735; 84484; 85025; 85610; 85730; 86850; 86900; 86901; 86923; 93005; 93010; 96374; 96375; 96376; 99285-25; C9113; J2405; J7030; P9016

== ENCOUNTER 2023-02-15 16:14 | Emergency (ER) | payer BC ==
[~2023-02-15] VITALS: Ht 162.6 cm; Wt 86.2 kg
[2023-02-15 16:52] LABS: Hematocrit 28.4 % (37.0-53.0); Hemoglobin 8.8 g/dL (13.5-17.5); Mean Corpuscular HGB 26.2 pg (26.0-34.0); Mean Corpuscular Volume 85 fL (80-100); Mean Platelet Volume 11.7 fL (9.1-12.4); Platelet Count 107 K/mm3 (150-400); RDW Coefficient Variation 15.9 % (11.7-14.2); RDW Standard Deviation 48.7 fL (35.1-46.3); Red Blood Cell Count 3.36 M/mm3 (4.30-5.90); White Blood Cell Count 17.75 K/mm3 (4.00-11.30)
[2023-02-15 17:05] LABS: Albumin, Blood 3.2 g/dL (3.4-5.0); Albumin/Globulin Ratio 0.8 (0.8-1.8); Bilirubin, Total 0.3 mg/dL (0.1-1.0); Bun/Creatinine Ratio 39.4 (12.0-20.0); Creatinine, Blood 0.84 mg/dL (0.60-1.20); Total Protein, Blood 7.2 g/dL (6.4-8.2)
[2023-02-15 17:40] LABS: BAND PERCENT MAN 2 % (0-8); BASOPHILS PERCENT MAN 0 % (0-2); EOSINOPHILS ABSOLUTE MAN 0.88 K/mm3 (0.00-0.68); EOSINOPHILS PERCENT MAN 5 % (0-6); LYMPHOCYTES ABSOLUTE MAN 4.43 K/mm3 (0.84-5.20); LYMPHOCYTES PERCENT MAN 25 % (21-46); MONOCYTES ABSOLUTE MAN 0.53 K/mm3 (0.16-1.47); MONOCYTES PERCENT MAN 3 % (4-13); NEUTROPHILS ABSOLUTE MAN 11.89 K/mm3 (1.96-9.15); SEG NEUTROPHILS PERCENT MAN 65 % (41-73); TOTAL CELLS COUNTED 100
[2023-02-15 20:00] VITALS: BP 117/88
[2023-02-16] MEDS ORDERED: AMLODIPINE BESYL5 MG (05:51)
[2023-02-16] MEDS ORDERED: ATORVALIQ20 MG/5 ML (05:51)
== END 2023-02-15 20:57 | disposition home or self-care (01) ==
LOC: ER 16:14
PROVIDERS: Student in an Organized Health Care Education/Training Program
DX: D62 Acute posthemorrhagic anemia (principal); K92.1 Melena; Z88.2 Allergy status to sulfonamides; Z88.5 Allergy status to narcotic agent; Z79.899 Other long term (current) drug therapy; Z79.84 Long term (current) use of oral hypoglycemic drugs; I10 Essential (primary) hypertension; E78.5 Hyperlipidemia, unspecified; E03.9 Hypothyroidism, unspecified; E11.9 Type 2 diabetes mellitus without complications; F17.210 Nicotine dependence, cigarettes, uncomplicated
CPT/HCPCS: 80053; 84484; 85025; 86850; 86900; 86901; 93005; 93010; 99285-25

== ENCOUNTER 2023-02-16 05:20 | Emergency (ER) | payer BC ==
[~2023-02-16] VITALS: Ht 162.6 cm; Wt 86.2 kg
[2023-02-16] MEDS ORDERED: ATORVALIQ20 MG/5 ML (05:51)
[2023-02-16] MEDS ORDERED: AMLODIPINE BESYL5 MG (05:51)
[2023-02-16 06:00] LABS: BASOPHILS ABSOLUTE AUTO 0.09 K/mm3 (0.00-0.23); BASOPHILS PERCENT AUTO 1 % (0-2); EOSINOPHILS ABSOLUTE AUTO 0.38 K/mm3 (0.00-0.68); EOSINOPHILS PERCENT AUTO 2 % (0-6); Hematocrit 22.7 % (37.0-53.0); Hemoglobin 6.8 g/dL (13.5-17.5); IMMATURE GRAN ABSOLUTE AUTO 0.09 K/mm3 (0.00-0.10); IMMATURE GRAN PERCENT AUTO 1 % (0-1); LYMPHOCYTES PERCENT AUTO 28 % (21-46); MONOCYTES ABSOLUTE AUTO 1.38 K/mm3 (0.16-1.47); MONOCYTES PERCENT AUTO 7 % (4-13); Mean Corpuscular HGB 26.4 pg (26.0-34.0); Mean Corpuscular Volume 88 fL (80-100); Mean Platelet Volume 12.1 fL (9.1-12.4); NEUTROPHILS ABSOLUTE AUTO 12.12 K/mm3 (1.96-9.15); NEUTROPHILS PERCENT AUTO 62 % (41-73); Platelet Count 252 K/mm3 (150-400); RDW Coefficient Variation 16.5 % (11.7-14.2); RDW Standard Deviation 52.1 fL (35.1-46.3); Red Blood Cell Count 2.58 M/mm3 (4.30-5.90); White Blood Cell Count 19.46 K/mm3 (4.00-11.30)
[2023-02-16 06:14] LABS: International Normalized Ratio 1.22; Prothrombin Time Results 12.7 Sec (9.7-11.5)
[2023-02-16 07:04] LABS: Albumin, Blood 3.3 g/dL (3.4-5.0); Albumin/Globulin Ratio 0.8 (0.8-1.8); Bilirubin, Total 0.5 mg/dL (0.1-1.0); Bun/Creatinine Ratio 52.6 (12.0-20.0); Calcium, Blood 8.1 mg/dL (8.5-10.1); Creatinine, Blood 0.82 mg/dL (0.60-1.20); Globulin, Blood 4.1 g/dL (2.2-4.0); Total Protein, Blood 7.4 g/dL (6.4-8.2)
[2023-02-16 10:45] VITALS: BP 159/84
== END 2023-02-16 11:20 | disposition home or self-care (01) ==
LOC: ER 05:20
PROVIDERS: Emergency Medicine
DX: K92.0 Hematemesis (principal); D64.9 Anemia, unspecified; D72.829 Elevated white blood cell count, unspecified; K74.60 Unspecified cirrhosis of liver; K76.6 Portal hypertension; E11.9 Type 2 diabetes mellitus without complications; I10 Essential (primary) hypertension; E03.9 Hypothyroidism, unspecified; E78.5 Hyperlipidemia, unspecified; F17.210 Nicotine dependence, cigarettes, uncomplicated; I25.10 Atherosclerotic heart disease of native coronary artery without angina pectoris; Z88.2 Allergy status to sulfonamides; Z88.5 Allergy status to narcotic agent; Z79.899 Other long term (current) drug therapy; Z79.84 Long term (current) use of oral hypoglycemic drugs; Z79.890 Hormone replacement therapy; Z95.1 Presence of aortocoronary bypass graft
CPT/HCPCS: 36430; 80053; 83605; 85025; 85610; 86850; 86900; 86901; 86923; 96361; 96365; 96368; 96375; 96376; 99285-25; C9113; J0696; J2354; J2765; J7030; J7050; P9016

== ENCOUNTER → 2023-05-07 | Outpatient (CLI) | payer BC ==
[~2023-05-07] MED LIST changes: +AMLODIPINE BESYL5 MG; +ATORVALIQ20 MG/5 ML
[2023-05-07 19:54] LABS: BASOPHILS ABSOLUTE AUTO 0.04 K/mm3 (0.00-0.23); BASOPHILS PERCENT AUTO 1 % (0-2); EOSINOPHILS ABSOLUTE AUTO 0.33 K/mm3 (0.00-0.68); EOSINOPHILS PERCENT AUTO 4 % (0-6); Hematocrit 47.4 % (37.0-53.0); Hemoglobin 15.2 g/dL (13.5-17.5); IMMATURE GRAN ABSOLUTE AUTO 0.03 K/mm3 (0.00-0.10); IMMATURE GRAN PERCENT AUTO 0 % (0-1); LYMPHOCYTES ABSOLUTE AUTO 2.07 K/mm3 (0.84-5.20); LYMPHOCYTES PERCENT AUTO 23 % (21-46); MONOCYTES ABSOLUTE AUTO 0.57 K/mm3 (0.16-1.47); MONOCYTES PERCENT AUTO 6 % (4-13); Mean Corpuscular HGB 25.8 pg (26.0-34.0); Mean Corpuscular HGB Conc 32.1 g/dL (31.5-36.5); Mean Corpuscular Volume 80 fL (80-100); NEUTROPHILS ABSOLUTE AUTO 5.83 K/mm3 (1.96-9.15); NEUTROPHILS PERCENT AUTO 66 % (41-73); Platelet Count 90 K/mm3 (150-400); RDW Coefficient Variation 17.5 % (11.7-14.2); RDW Standard Deviation 49.8 fL (35.1-46.3); White Blood Cell Count 8.87 K/mm3 (4.00-11.30)
== END ==
LOC: LAB SHORT 17:20 → LAB 17:20
PROVIDERS: Hospitalist
DX: D50.0 Iron deficiency anemia secondary to blood loss (chronic) (principal); D61.818 Other pancytopenia
CPT/HCPCS: 85025

== ENCOUNTER 2023-10-07 12:30 | Emergency (ER) | payer BC ==
[~2023-10-07] VITALS: Ht 162.6 cm; Wt 93.0 kg
[2023-10-07] MEDS ORDERED: Ondansetron HCl 2 MG / ML 2ML Vial IV PRN (12:50)
[2023-10-07] MEDS ORDERED: Carvedilol12.5 MG PO (13:13)
[2023-10-07] MEDS ORDERED: ATOR40TA PO (13:13)
[2023-10-07] MEDS ORDERED: LACT10SY (13:15)
[2023-10-07 13:18] LABS: BASOPHILS ABSOLUTE AUTO 0.03 K/mm3 (0.00-0.23); BASOPHILS PERCENT AUTO 1 % (0-2); EOSINOPHILS ABSOLUTE AUTO 0.14 K/mm3 (0.00-0.68); EOSINOPHILS PERCENT AUTO 2 % (0-6); Hematocrit 44.7 % (37.0-53.0); Hemoglobin 14.9 g/dL (13.5-17.5); IMMATURE GRAN ABSOLUTE AUTO 0.02 K/mm3 (0.00-0.10); IMMATURE GRAN PERCENT AUTO 0 % (0-1); LYMPHOCYTES PERCENT AUTO 27 % (21-46); MONOCYTES ABSOLUTE AUTO 1.08 K/mm3 (0.16-1.47); MONOCYTES PERCENT AUTO 17 % (4-13); Mean Corpuscular HGB 28.4 pg (26.0-34.0); Mean Corpuscular HGB Conc 33.3 g/dL (31.5-36.5); Mean Corpuscular Volume 85 fL (80-100); Mean Platelet Volume 11.3 fL (9.1-12.4); NEUTROPHILS ABSOLUTE AUTO 3.27 K/mm3 (1.96-9.15); NEUTROPHILS PERCENT AUTO 53 % (41-73); Platelet Count 108 K/mm3 (150-400); RDW Coefficient Variation 14.4 % (11.7-14.2); RDW Standard Deviation 45.3 fL (35.1-46.3); Red Blood Cell Count 5.24 M/mm3 (4.30-5.90); White Blood Cell Count 6.24 K/mm3 (4.00-11.30)
[2023-10-07 13:29] LABS: Albumin/Globulin Ratio 0.8 (0.8-1.8); Bilirubin, Total 0.6 mg/dL (0.1-1.0); Bun/Creatinine Ratio 16.5 (12.0-20.0); Calcium, Blood 9.2 mg/dL (8.5-10.1); Creatinine, Blood 0.91 mg/dL (0.60-1.20); Globulin, Blood 5.3 g/dL (2.2-4.0); Potassium, Blood 4.1 mmol/L (3.5-5.5); Total Protein, Blood 9.3 g/dL (6.4-8.2)
[2023-10-07] MEDS ORDERED: NS 1,000 ML IV SCH (13:40)
[2023-10-07] MEDS ORDERED: Metoclopramide HCl 5MG / ML 2ML Vial IV ONE (13:55)
[2023-10-07] MEDS ORDERED: ONDA4ODT MM (14:36)
[2023-10-07 15:45] VITALS: BP 167/103
== END 2023-10-07 15:52 | disposition home or self-care (01) ==
LOC: ER 12:30
PROVIDERS: Emergency Medicine
DX: R11.2 Nausea with vomiting, unspecified (principal); R55 Syncope and collapse; I10 Essential (primary) hypertension; E78.5 Hyperlipidemia, unspecified; E03.9 Hypothyroidism, unspecified; E11.9 Type 2 diabetes mellitus without complications; F17.210 Nicotine dependence, cigarettes, uncomplicated; Z79.899 Other long term (current) drug therapy; Z79.84 Long term (current) use of oral hypoglycemic drugs; Z88.2 Allergy status to sulfonamides; Z88.5 Allergy status to narcotic agent
CPT/HCPCS: 80053; 82947; 84484; 85025; 93005; 93010; 96361; 96374; 96375; 99284-25; J2405; J2765; J7030

== ENCOUNTER → 2024-02-03 | Outpatient (CLI) | payer BC ==
[~2024-02-03] MED LIST changes: +ATOR40TA PO; +Carvedilol12.5 MG PO; +LACT10SY; +ONDA4ODT MM
[2024-02-03 19:24] LABS: BASOPHILS ABSOLUTE AUTO 0.04 K/mm3 (0.00-0.23); BASOPHILS PERCENT AUTO 1 % (0-2); EOSINOPHILS ABSOLUTE AUTO 0.11 K/mm3 (0.00-0.68); EOSINOPHILS PERCENT AUTO 2 % (0-6); Hematocrit 41.1 % (37.0-53.0); Hemoglobin 13.9 g/dL (13.5-17.5); IMMATURE GRAN ABSOLUTE AUTO 0.04 K/mm3 (0.00-0.10); IMMATURE GRAN PERCENT AUTO 1 % (0-1); LYMPHOCYTES ABSOLUTE AUTO 1.15 K/mm3 (0.84-5.20); LYMPHOCYTES PERCENT AUTO 23 % (21-46); MONOCYTES ABSOLUTE AUTO 0.28 K/mm3 (0.16-1.47); MONOCYTES PERCENT AUTO 6 % (4-13); Mean Corpuscular HGB 28.7 pg (26.0-34.0); Mean Corpuscular HGB Conc 33.8 g/dL (31.5-36.5); Mean Corpuscular Volume 85 fL (80-100); NEUTROPHILS ABSOLUTE AUTO 3.33 K/mm3 (1.96-9.15); NEUTROPHILS PERCENT AUTO 67 % (41-73); RDW Coefficient Variation 14.2 % (11.7-14.2); Red Blood Cell Count 4.84 M/mm3 (4.30-5.90); White Blood Cell Count 4.95 K/mm3 (4.00-11.30)
== END | disposition home or self-care (01) ==
LOC: LAB SHORT 18:06 → LAB 18:06
PROVIDERS: Hospitalist
DX: K74.69 Other cirrhosis of liver (principal)
CPT/HCPCS: 85025

== ENCOUNTER 2024-03-04 07:32 | Day surgery (SDC) | payer BC ==
[~2024-03-04] VITALS: Ht 162.6 cm; Wt 91.0 kg
[~2024-03-04 07:32] MED LIST changes: +Lactated Ringer's 1,000 ML IV ONE
[2024-03-04] MEDS ORDERED: propofoL 50 ML IV ONE (07:43)
[2024-03-04] MEDS ORDERED: ASPI81CH (08:15)
[2024-03-04] MEDS ORDERED: FARXIGA10 MG (08:22)
[2024-03-04] MEDS ORDERED: ERGO50000 (08:23)
[2024-03-04] MEDS ORDERED: Vitamin D1000 UNI1 (08:23)
[2024-03-04] MEDS ORDERED: B-COMPLEX1 EACH (08:24)
[2024-03-04] MEDS ORDERED: Lactated Ringer's 1,000 ML IV ONE (08:42)
[2024-03-04 09:46] VITALS: BP 129/80
== END 2024-03-04 09:40 | disposition home or self-care (01) ==
LOC: ORSCSDS 07:32
PROVIDERS: Specialist
PROC: 0DJ08ZZ Inspection of Upper Intestinal Tract, Via Natural or Artificial Opening Endoscopic (ICD-10-PCS; principal; 2024-03-04 09:00)
DX: I85.00 Esophageal varices without bleeding (principal); K74.60 Unspecified cirrhosis of liver; K76.0 Fatty (change of) liver, not elsewhere classified; E11.9 Type 2 diabetes mellitus without complications; E78.5 Hyperlipidemia, unspecified; I10 Essential (primary) hypertension; Z95.1 Presence of aortocoronary bypass graft; E07.9 Disorder of thyroid, unspecified; Z87.891 Personal history of nicotine dependence; Z79.82 Long term (current) use of aspirin; Z79.84 Long term (current) use of oral hypoglycemic drugs; Z79.899 Other long term (current) drug therapy
CPT/HCPCS: 82947; J2704; J7120

== ENCOUNTER 2024-09-30 12:01 | Day surgery (SDC) | payer BC ==
[~2024-09-30] VITALS: Ht 162.6 cm; Wt 89.6 kg
[~2024-09-30 12:01] MED LIST changes: +ASPI81CH; +B-COMPLEX1 EACH; +ERGO50000; +FARXIGA10 MG; -Lactated Ringer's 1,000 ML IV ONE; +Vitamin D1000 UNI1
[2024-09-30] MEDS ORDERED: Benzocaine Oral Spray 0.5ML UD ONE (12:52)
[2024-09-30] MEDS ORDERED: Phenylephrine HCl 100 MCG/ML-NS 10MLSYR (1MG/10ML) ONE (13:15)
[2024-09-30] MEDS ORDERED: ePHEDrine Sulfate 50 MG/ML 1ML Injection ONE (13:16)
--- NOTE | 2024-09-30 13:40 | NUR ---
09/30/24 1340 BROOKLYNN MCDUFFIE ABORTED PROCEDURE PER DR MIRANDA PT BP 200/155 DESPITE PROPOFOL PT WOULDNT HOLD STILL AND PULLED HIS IV OUT. PT NEEDS TO BE RESCHEDULED AT MAIN PER ANESTHESIOLOGIST DR MIRANDA
[2024-09-30 16:28] VITALS: BP 190/107
--- NOTE | 2024-09-30 16:33 | NUR ---
09/30/24 0173 BROOKLYNN MCDUFFIE FROM [facility] CALLED TO GET MORE INFO ON WHY PT NEEDED TO BE RESCHEDULED. RN TCR WAS IN ROOM GAVE HER THE NOTES OF BP AND EXPLAINED ANESTH. DR MIRANDA RECOMMENDATION THAT PT FOLLOW UP AT ER OR W/ PCP MICHAEL REGARDING HIS ELEVATED BP 202/107 AT MT BUT HIGHER DURING ATTEMPT TO SEDATE PT. DR MIRANDA SAID PT NEEDED TO SCOPED AT MAIN UNDER GENERAL DUE TO HIS DIFFICULTY TO SEDATE. NOTES BEING GIVEN TO AT [facility]. PT IS AT THEIR OFFICE GETTING HIS BP CHECKED OUT AND DISCUSSING PT NEXT STEP TO GET HIS EGD.
== END 2024-09-30 14:17 | disposition home or self-care (01) ==
LOC: ORSCSDS 12:01
PROVIDERS: Internal Medicine Gastroenterology
PROC: 0DJ08ZZ Inspection of Upper Intestinal Tract, Via Natural or Artificial Opening Endoscopic (ICD-10-PCS; principal; 2024-09-30 13:30)
PROC: 0DJD8ZZ Inspection of Lower Intestinal Tract, Via Natural or Artificial Opening Endoscopic (ICD-10-PCS; principal; 2024-09-30 13:30)
DX: K74.60 Unspecified cirrhosis of liver (principal); Z13.810 Encounter for screening for upper gastrointestinal disorder; Z12.11 Encounter for screening for malignant neoplasm of colon; Z86.0100 Personal history of colon polyps, unspecified; Z53.9 Procedure and treatment not carried out, unspecified reason; E11.9 Type 2 diabetes mellitus without complications; K76.82 Hepatic encephalopathy; K76.0 Fatty (change of) liver, not elsewhere classified; E78.5 Hyperlipidemia, unspecified; I10 Essential (primary) hypertension; E03.9 Hypothyroidism, unspecified; Z87.891 Personal history of nicotine dependence; Z79.82 Long term (current) use of aspirin; Z79.84 Long term (current) use of oral hypoglycemic drugs; Z79.899 Other long term (current) drug therapy
CPT/HCPCS: 82947; A9270; J2371; J2704; J7120